=== PATIENT | male | born 1935 | race Two or more races ===

== ENCOUNTER 2018-04-25 06:52 | Day surgery (SDC) | payer OTHER ==
[~2018-04-25 06:52] MED LIST: ATENOLOL25 MG PO; COZAAR50 MG PO; OXCARBAZEPINE600 MG PO
== END 2018-04-25 13:30 | disposition home or self-care (01) ==
LOC: CIR.AMB 06:52
DX: G50.0 Trigeminal neuralgia (principal)

== ENCOUNTER 2025-03-08 12:00 | Emergency (ER) | payer OTHER ==
[~2025-03-08] VITALS: Ht 167.6 cm; Wt 79.4 kg
[2025-03-08] MEDS ORDERED: LEVOTHYROXINE25 MCG (12:33)
[2025-03-08] MEDS ORDERED: ARICEPT5 MG (12:34)
[2025-03-08] MEDS ORDERED: 0.9 % SODIUM CHLORIDE 500 ML IV ONE (13:00)
[2025-03-08 13:47] LABS: BASO % 0.1 % (0.1-1.2); EOS # 0.03 (0.04-0.54); EOS % 0.3 % (0.7-7.0); LYMPH # 0.58 (1.18-3.74); LYMPH % 6.7 % (19.3-53.1); MEAN PLATELET VOLUME 11.80 fl (9.4-12.4); MONO # 1.10 (0.24-0.82); NEUT # 6.93 (1.56-6.13); NEUT % 79.9 % (34.0-71.1); RED CELL DISTRIBUTION WIDTH 16.2 % (11.6-14.4)
[2025-03-08 13:48] LABS: MONO % 12.7 % (4.7-12.5)
[2025-03-08 14:24] LABS: ALT/SGPT 30.0 U/L (12-78); AST/SGOT 27.0 U/L (15-37); BILIRUBIN TOTAL 0.54 mg/dL (0.3-1.2); BUN CREA RATIO 23.0 (7.0-25.0); CREATININE SERUM 0.8 mg/dL (0.70-1.30); GFR 91.44; GLOBULINA 3.5 G/DL (2.4-3.5); GLUCOSE FASTING 107.0 mg/dL (65-100); OSMOLALITY SERUM 271.0 MOSM/KG (275-295)
[2025-03-08 14:40] LABS: COVID-19 AG POSITIVE (NEGATIVE)
== END 2025-03-08 15:18 | disposition home or self-care (01) ==
LOC: ER 12:00
PROVIDERS: General Practice
DX: U07.1 COVID-19 (principal); R55 Syncope and collapse; I10 Essential (primary) hypertension; E03.8 Other specified hypothyroidism
CPT/HCPCS: 36415; 70450; 71045; 93005; 96365; 96366; 99284; J7030